=== PATIENT | male | born 1955 | race Asian ===

== ENCOUNTER 2017-07-31 17:09 | Inpatient (IN) | payer BC, MEDICARE ==
[~2017-07-31] VITALS: Ht 170.2 cm; Wt 84.5 kg
[2017-07-31 17:22] LABS: GLUCOSE,POINT OF CARE 150 MG/DL (70-110)
[2017-07-31 19:26] LABS: BASOPHILS % (AUTO) 0.7 % (0.0-2.0); EOSINOPHILS % (AUTO) 1.7 % (1.0-6.0); HEMATOCRIT 21.4 % (41-53); HEMOGLOBIN 7.4 g/dL (13.5-17.5); LYMPHOCYTES # (AUTO) 0.8 K/uL (1.0-4.8); MEAN CORPUSCULAR HEMOGLOBIN 30.5 pg (26.0-34.0); MEAN CORPUSCULAR HGB CONC 34.6 G/dL (31.0-37.0); MEAN CORPUSCULAR VOLUME 88 fL (80-100); MONOCYTES # (AUTO) 0.5 K/uL (0.1-1.0); MONOCYTES % (AUTO) 7.9 % (2.0-9.0); NEUTROPHILS # (AUTO) 5.2 K/uL (1.8-7.7); NEUTROPHILS % (AUTO) 77.7 % (40.0-70.0); PLATELET COUNT (AUTO) 205 K/uL (150-450); RED BLOOD CELL COUNT(AUTO) 2.43 MIL/uL (4.50-5.90); RED CELL DISTRIBUTION WIDTH 14.8 % (11.5-14.5)
[2017-07-31 19:36] LABS: CALCIUM, TOTAL 8.3 mg/dL (8.8-10.5); CREATININE 9.63 mg/dL (0.60-1.30); POTASSIUM 5.4 mmol/L (3.5-5.1)
[2017-07-31 20:01] LABS: ALBUMIN 2.6 g/dL (3.4-5.0); BILIRUBIN,TOTAL 0.3 mg/dL (0.1-1.0); CKMB RELATIVE INDEX 1.8 % (0.0-4.0); CREATINE KINASE MB 9.4 ng/mL (0-5)
[2017-07-31 20:28] LABS: PLATELET MORPHOLOGY COMMENT LARGE PLTS PRESENT
[2017-07-31] MEDS ORDERED: SODIUM POLYSTYRENE SULFONATE 15 GM/60 ML SUSPENSION BOTTLE PO ONE (20:30)
[2017-07-31] MEDS ORDERED: BUMETANIDE 0.25 MG/ML 4 ML VIAL IVP ONE ×2 (20:30→20:45)
[2017-07-31 21:17] LABS: GLUCOSE,POINT OF CARE 151 MG/DL (70-110)
[2017-07-31] MEDS ORDERED: HydrALAZINE HCL 20 MG/ML VIAL IVP ONE (21:45)
[2017-07-31] MEDS ORDERED: FUROSEMIDE 40 MG/4 ML VIAL IVP ONE (21:45)
[2017-07-31] MEDS ORDERED: LABETALOL HCL 5 MG/ML 20 ML VIAL IVP STA (21:48)
[2017-07-31] MEDS ORDERED: NITROGLYCERIN 2% (1 GM=INCH) PACKET TP ONE (22:00)
[2017-07-31 22:27] LABS: APPEARANCE,URINE CLEAR (CLEAR); BILIRUBIN,URINE NEGATIVE (NEGATIVE); GLUCOSE, URINE (UA) 250 mg/dL (NEGATIVE); KETONES,URINE NEGATIVE (NEGATIVE); LEUKOCYTE ESTERASE ,URINE NEGATIVE (NEGATIVE); NITRATE,URINE NEGATIVE (NEGATIVE); OCCULT BLOOD,URINE SMALL (NEGATIVE); PH,URINE 7.5 (5.0-8.0); PROTEIN,URINE SEE CONFIRM (NEGATIVE); UROBILINOGEN,URINE 0.2 mg/dL (<=1.0)
[2017-07-31] MEDS ORDERED: ACETAMINOPHEN 325 MG TABLET PO PRN (22:45)
[2017-07-31] MEDS ORDERED: BISACODYL 10 MG RECTAL RECTAL SUPPOSITORY PR PRN (22:45)
[2017-07-31] MEDS ORDERED: ZOLPIDEM TARTRATE 5 MG TABLET PO PRN (22:45)
[2017-07-31] MEDS ORDERED: MORPHINE SULFATE 4 MG/ML SYRINGE IVP PRN (22:45)
[2017-07-31] MEDS ORDERED: IPRATROPIUM BROMIDE 0.5 MG/2.5 ML NEB SOLUTION NEB PRN (22:45)
[2017-07-31] MEDS ORDERED: MAGNESIUM HYDROXIDE SUSPENSION 30 ML UDCUP PO PRN (22:45)
[2017-07-31] MEDS ORDERED: OxyCODONE HCL/ACETAMINOPHEN 5-325 MG TABLET PO PRN (22:45)
[2017-07-31] MEDS ORDERED: ONDANSETRON HCL 4 MG/2 ML VIAL IVP PRN (22:45)
[2017-07-31] MEDS ORDERED: ALBUTEROL SULFATE 2.5 MG/0.5 ML NEB SOLUTION NEB PRN (22:45)
[2017-07-31 22:46] LABS: BACTERIA,URINE None Seen /HPF (None Seen); SQUAMOUS EPITHELIAL CELL,UR Rare /LPF (None Seen); SULFOSALICYLIC ACID,URINE 4+ (Negative); WBC,URINE 0-2 /HPF (0-5)
[2017-07-31 23:09] VITALS: BP 185/97
[2017-07-31 23:59] VITALS: BP 185/93
[2017-08-01] VITALS (7 sets, daily range): BP systolic 143–194; BP diastolic 73–97
[2017-08-01 05:45] LABS: PROTHROMBIN TIME 10.9 SEC (9.4-11.6)
[2017-08-01 06:00] LABS: % IRON SATURATION 18.9 % (30-44)
[2017-08-01 06:04] LABS: ALBUMIN 2.3 g/dL (3.4-5.0); BILIRUBIN,TOTAL 0.2 mg/dL (0.1-1.0); CALCIUM, TOTAL 7.9 mg/dL (8.8-10.5); CHOL/HDL RATIO 3.7 (4.2-7.3); CREATININE 9.61 mg/dL (0.60-1.30); MAGNESIUM 2.2 mg/dL (1.80-2.40); PHOSPHORUS 6.5 mg/dL (2.5-4.9); POTASSIUM 5.1 mmol/L (3.5-5.1); THYROID STIMULATING HORMONE 1.04 uIU/mL (0.36-3.74); TOTAL PROTEIN, SERUM 5.6 g/dL (6.4-8.2)
[2017-08-01 06:06] LABS: HEMOGLOBIN A1C 7.2 % (4.5-6.2)
[2017-08-01] MEDS: NITROGLYCERIN 2% (1 GM=INCH) PACKET TP SCH ×5 (06:15→23:41)
[2017-08-01 07:12] LABS: BASOPHILS % (AUTO) 0.8 % (0.0-2.0); EOSINOPHILS % (AUTO) 1.5 % (1.0-6.0); LYMPHOCYTES # (AUTO) 0.9 K/uL (1.0-4.8); LYMPHOCYTES % (AUTO) 15.6 % (22.0-44.0); MEAN CORPUSCULAR HEMOGLOBIN 30.4 pg (26.0-34.0); MEAN CORPUSCULAR HGB CONC 34.4 G/dL (31.0-37.0); MEAN CORPUSCULAR VOLUME 88 fL (80-100); MONOCYTES # (AUTO) 0.4 K/uL (0.1-1.0); MONOCYTES % (AUTO) 7.9 % (2.0-9.0); NEUTROPHILS # (AUTO) 4.2 K/uL (1.8-7.7); NEUTROPHILS % (AUTO) 74.2 % (40.0-70.0); PLATELET COUNT (AUTO) 204 K/uL (150-450); RED BLOOD CELL COUNT(AUTO) 2.23 MIL/uL (4.50-5.90); RED CELL DISTRIBUTION WIDTH 14.8 % (11.5-14.5)
[2017-08-01 07:15] LABS: HEMATOCRIT 19.7 % (41-53); HEMOGLOBIN 6.8 g/dL (13.5-17.5)
[2017-08-01 09:09] LABS: BASOPHILS % (AUTO) 1.2 % (0.0-2.0); EOSINOPHILS % (AUTO) 1.7 % (1.0-6.0); HEMATOCRIT 21.6 % (41-53); HEMOGLOBIN 7.3 g/dL (13.5-17.5); LYMPHOCYTES # (AUTO) 0.9 K/uL (1.0-4.8); LYMPHOCYTES % (AUTO) 14.3 % (22.0-44.0); MEAN CORPUSCULAR HEMOGLOBIN 29.9 pg (26.0-34.0); MEAN CORPUSCULAR HGB CONC 33.6 G/dL (31.0-37.0); MEAN CORPUSCULAR VOLUME 89 fL (80-100); MONOCYTES # (AUTO) 0.5 K/uL (0.1-1.0); MONOCYTES % (AUTO) 8.3 % (2.0-9.0); NEUTROPHILS # (AUTO) 4.5 K/uL (1.8-7.7); NEUTROPHILS % (AUTO) 74.5 % (40.0-70.0); PLATELET COUNT (AUTO) 212 K/uL (150-450); RED BLOOD CELL COUNT(AUTO) 2.43 MIL/uL (4.50-5.90); RED CELL DISTRIBUTION WIDTH 14.9 % (11.5-14.5)
[2017-08-01 09:29] LABS: PLATELET MORPHOLOGY COMMENT LARGE PLTS PRESENT
[2017-08-01] MEDS: EPOETIN ALFA 10,000 UNITS/ML VIAL SQ SCH (09:39)
[2017-08-01] MEDS: HEPARIN SODIUM,PORCINE 5,000 UNITS/ML VIAL SQ SCH ×2 (09:40→20:23)
[2017-08-01] MEDS: PANTOPRAZOLE SODIUM 40 MG DR TABLET PO SCH (09:40)
[2017-08-01] MEDS: BUMETANIDE 0.25 MG/ML 10 ML VIAL IVP SCH ×2 (09:40→20:23)
[2017-08-01 10:48] LABS: GLUCOMETER DEV NAME(LOC) 5N 2S; GLUCOSE,POINT OF CARE 134 MG/DL (70-110)
[2017-08-01] MEDS: FERROUS SULFATE 325 MG EC TABLET PO SCH ×2 (11:48→18:10)
[2017-08-01] MEDS: VITAMIN B COMP/VIT C/FOLIC ACID CAPSULE PO SCH (11:51)
[2017-08-01 13:37] LABS: GLUCOMETER DEV NAME(LOC) 5S 1M; GLUCOSE,POINT OF CARE 212 MG/DL (70-110)
[2017-08-01] MEDS ORDERED: DEXTROSE 50%-WATER 25 GM/50 ML SYRINGE IVP PRN (18:00)
[2017-08-01] MEDS: INSULIN ASPART 100 UNITS/ML SQ PRN (20:22)
[2017-08-01] MEDS: CloNIDine HCL 0.1 MG TABLET PO PRN (23:51)
[2017-08-02] VITALS (18 sets, daily range): BP systolic 127–191; BP diastolic 72–100
[2017-08-02 00:08] LABS: GLUCOMETER DEV NAME(LOC) 5S 1M; GLUCOSE,POINT OF CARE 196 MG/DL (70-110)
[2017-08-02 00:08] LABS: GLUCOMETER DEV NAME(LOC) 5S 1M; GLUCOSE,POINT OF CARE 140 MG/DL (70-110)
[2017-08-02] MEDS: NITROGLYCERIN 2% (1 GM=INCH) PACKET TP SCH ×3 (06:10→17:39)
[2017-08-02] MEDS: INSULIN ASPART 100 UNITS/ML SQ PRN ×3 (06:12→21:04)
[2017-08-02 06:22] LABS: CALCIUM, TOTAL 7.7 mg/dL (8.8-10.5); CREATININE 9.96 mg/dL (0.60-1.30); MONOCYTES # (AUTO) 0.5 K/uL (0.1-1.0); PHOSPHORUS 6.3 mg/dL (2.5-4.9); POTASSIUM 4.9 mmol/L (3.5-5.1)
[2017-08-02 07:10] LABS: EOSINOPHILS % (AUTO) 2.4 % (1.0-6.0); LYMPHOCYTES % (AUTO) 17.2 % (22.0-44.0); MEAN CORPUSCULAR HEMOGLOBIN 30.8 pg (26.0-34.0); MEAN CORPUSCULAR HGB CONC 34.9 G/dL (31.0-37.0); MEAN CORPUSCULAR VOLUME 88 fL (80-100); MONOCYTES % (AUTO) 8.4 % (2.0-9.0); NEUTROPHILS # (AUTO) 4.3 K/uL (1.8-7.7); PLATELET COUNT (AUTO) 171 K/uL (150-450); RED BLOOD CELL COUNT(AUTO) 2.17 MIL/uL (4.50-5.90); RED CELL DISTRIBUTION WIDTH 14.8 % (11.5-14.5)
[2017-08-02 07:17] LABS: HEMOGLOBIN 6.7 g/dL (13.5-17.5)
[2017-08-02 07:18] LABS: HEMATOCRIT 19.2 % (41-53)
[2017-08-02 07:42] LABS: GLUCOMETER DEV NAME(LOC) 5S 1M; GLUCOSE,POINT OF CARE 135 MG/DL (70-110)
[2017-08-02] MEDS: VITAMIN B COMP/VIT C/FOLIC ACID CAPSULE PO SCH (08:58)
[2017-08-02] MEDS: PANTOPRAZOLE SODIUM 40 MG DR TABLET PO SCH (08:58)
[2017-08-02] MEDS: AmLODIPine BESYLATE 5 MG TABLET PO SCH (08:58)
[2017-08-02] MEDS: FERROUS SULFATE 325 MG EC TABLET PO SCH (08:58)
[2017-08-02] MEDS ORDERED: SODIUM CHLORIDE 0.9% 100 ML ONE (09:33)
[2017-08-02] MEDS: SOD FERRIC GLUC COMPLX/SUCROSE 125 MG in SODIUM CHLORIDE 0.9% 100 ML IV SCH (09:37)
[2017-08-02] MEDS: HEPARIN SODIUM,PORCINE 5,000 UNITS/ML VIAL SQ SCH ×2 (09:37→20:49)
[2017-08-02] MEDS: BUMETANIDE 0.25 MG/ML 10 ML VIAL IVP SCH ×2 (09:39→20:48)
[2017-08-02] MEDS: CloNIDine HCL 0.1 MG TABLET PO PRN (11:26)
[2017-08-02] MEDS ORDERED: SODIUM CHLORIDE 0.9% 250 ML IV ONE (13:11)
[2017-08-02] MEDS: LABETALOL HCL 5 MG/ML 20 ML VIAL IVP PRN (17:31)
[2017-08-02] MEDS: CloNIDine HCL 0.1 MG TABLET PO SCH (20:49)
[2017-08-02] MEDS: LABETALOL HCL 100 MG TABLET PO SCH (20:49)
[2017-08-02 23:22] LABS: GLUCOMETER DEV NAME(LOC) 5N 2S; GLUCOSE,POINT OF CARE 254 MG/DL (70-110)
[2017-08-03 00:09] VITALS: BP 145/85
[2017-08-03] MEDS: NITROGLYCERIN 2% (1 GM=INCH) PACKET TP SCH ×3 (00:14→11:57)
[2017-08-03 04:43] VITALS: BP 154/68
[2017-08-03] MEDS: INSULIN ASPART 100 UNITS/ML SQ PRN ×2 (05:58→11:59)
[2017-08-03 06:41] LABS: BASOPHILS % (AUTO) 1.1 % (0.0-2.0); EOSINOPHILS % (AUTO) 3.2 % (1.0-6.0); HEMATOCRIT 22.6 % (41-53); HEMOGLOBIN 8.2 g/dL (13.5-17.5); LYMPHOCYTES # (AUTO) 1.2 K/uL (1.0-4.8); LYMPHOCYTES % (AUTO) 20.4 % (22.0-44.0); MEAN CORPUSCULAR HEMOGLOBIN 31.4 pg (26.0-34.0); MEAN CORPUSCULAR HGB CONC 36.5 G/dL (31.0-37.0); MEAN CORPUSCULAR VOLUME 86 fL (80-100); MONOCYTES # (AUTO) 0.6 K/uL (0.1-1.0); MONOCYTES % (AUTO) 10.1 % (2.0-9.0); NEUTROPHILS # (AUTO) 3.7 K/uL (1.8-7.7); NEUTROPHILS % (AUTO) 65.2 % (40.0-70.0); PLATELET COUNT (AUTO) 176 K/uL (150-450); RED BLOOD CELL COUNT(AUTO) 2.63 MIL/uL (4.50-5.90); RED CELL DISTRIBUTION WIDTH 15.1 % (11.5-14.5)
[2017-08-03 07:09] LABS: CALCIUM, TOTAL 7.9 mg/dL (8.8-10.5); CREATININE 10.14 mg/dL (0.60-1.30); MAGNESIUM 1.9 mg/dL (1.80-2.40); PHOSPHORUS 6.4 mg/dL (2.5-4.9); POTASSIUM 4.6 mmol/L (3.5-5.1)
[2017-08-03 07:52] VITALS: BP 178/94
[2017-08-03] MEDS: SOD FERRIC GLUC COMPLX/SUCROSE 125 MG in SODIUM CHLORIDE 0.9% 100 ML IV SCH (08:30)
[2017-08-03] MEDS: CloNIDine HCL 0.1 MG TABLET PO SCH (08:30)
[2017-08-03] MEDS: BUMETANIDE 0.25 MG/ML 10 ML VIAL IVP SCH (08:30)
[2017-08-03] MEDS: LABETALOL HCL 100 MG TABLET PO SCH (08:31)
[2017-08-03] MEDS: VITAMIN B COMP/VIT C/FOLIC ACID CAPSULE PO SCH (08:31)
[2017-08-03] MEDS: PANTOPRAZOLE SODIUM 40 MG DR TABLET PO SCH (08:31)
[2017-08-03] MEDS: EPOETIN ALFA 10,000 UNITS/ML VIAL SQ SCH (08:31)
[2017-08-03] MEDS: AmLODIPine BESYLATE 5 MG TABLET PO SCH (08:31)
[2017-08-03] MEDS: HEPARIN SODIUM,PORCINE 5,000 UNITS/ML VIAL SQ SCH (08:32)
[2017-08-03] MEDS ORDERED: FURO40 PO (11:08)
[2017-08-03] MEDS ORDERED: CLON-570 PO (11:08)
[2017-08-03] MEDS ORDERED: LABE200T PO (11:09)
[2017-08-03] MEDS ORDERED: AMLO-512 PO (11:09)
[2017-08-03 11:48] VITALS: BP 169/81
[2017-08-03] MEDS: LABETALOL HCL 5 MG/ML 20 ML VIAL IVP PRN (11:58)
[2017-08-03] MEDS ORDERED: CALCIUM ACETATE 667 MG CAPSULE PO SCH (12:00)
[2017-08-03 13:38] VITALS: BP 133/71
[2017-08-03 17:07] LABS: GLUCOMETER DEV NAME(LOC) 5N 2S; GLUCOSE,POINT OF CARE 209 MG/DL (70-110)
[2017-08-03 17:07] LABS: GLUCOMETER DEV NAME(LOC) 5N 2S; GLUCOSE,POINT OF CARE 197 MG/DL (70-110)
[2017-08-03 17:18] LABS: GLUCOMETER DEV NAME(LOC) 5S 1M; GLUCOSE,POINT OF CARE 120 MG/DL (70-110)
[2017-08-03 17:18] LABS: GLUCOMETER DEV NAME(LOC) 5S 1M; GLUCOSE,POINT OF CARE 162 MG/DL (70-110)
[2017-08-03] MEDS ORDERED: LABETALOL HCL 100 MG TABLET PO SCH (21:00)
== END 2017-08-03 13:55 | disposition home or self-care (01) | DRG 291 ==
LOC: EMS 17:11 → 5N 20:30
PROVIDERS: ADMIT Internal Medicine; ATTEND Internal Medicine
PROC: 30233N1 Transfusion of Nonautologous Red Blood Cells into Peripheral Vein, Percutaneous Approach (ICD-10-PCS; principal; 2017-08-02)
DX: I13.2 Hypertensive heart and chronic kidney disease with heart failure and with stage 5 chronic kidney disease, or end stage renal disease (principal); N18.6 End stage renal disease; N17.9 Acute kidney failure, unspecified; E46 Unspecified protein-calorie malnutrition; E11.22 Type 2 diabetes mellitus with diabetic chronic kidney disease; E11.319 Type 2 diabetes mellitus with unspecified diabetic retinopathy without macular edema; E83.51 Hypocalcemia; E87.5 Hyperkalemia; D63.1 Anemia in chronic kidney disease; I50.9 Heart failure, unspecified; E55.9 Vitamin D deficiency, unspecified; E78.5 Hyperlipidemia, unspecified; Z91.15 Patient's noncompliance with renal dialysis; Z91.19 Patient's noncompliance with other medical treatment and regimen; Z68.29 Body mass index [BMI] 29.0-29.9, adult
CPT/HCPCS: 82271; 82306; 82962; 83036; 83540; 83550; 83735; 84100; 84443; 86850; 86900; 86901; 86920; 93005; 96374; 96375; 99291; J0885; J1644; J1940; J2405; J2916; J3490; J7050; P9016

== ENCOUNTER 2017-11-07 14:58 | Inpatient (IN) | payer MEDICARE ==
[~2017-11-07] VITALS: Ht 170.2 cm; Wt 87.2 kg
[~2017-11-07 14:58] MED LIST: AMLO-512 PO; CLON-570 PO; FURO40 PO; LABE200T PO
[2017-11-07] MEDS ORDERED: METF500T6 PO (15:09)
[2017-11-07 15:13] LABS: GLUCOSE,POINT OF CARE 55 MG/DL (70-110)
[2017-11-07 15:33] LABS: GLUCOSE,POINT OF CARE 83 MG/DL (70-110)
[2017-11-07 15:42] LABS: BASOPHILS % (AUTO) 0.9 % (0.0-2.0); EOSINOPHILS % (AUTO) 1.6 % (1.0-6.0); LYMPHOCYTES # (AUTO) 0.6 K/uL (1.0-4.8); LYMPHOCYTES % (AUTO) 12.7 % (22.0-44.0); MEAN CORPUSCULAR HEMOGLOBIN 28.4 pg (26.0-34.0); MEAN CORPUSCULAR HGB CONC 33.3 G/dL (31.0-37.0); MEAN CORPUSCULAR VOLUME 85 fL (80-100); MONOCYTES # (AUTO) 0.4 K/uL (0.1-1.0); MONOCYTES % (AUTO) 8.8 % (2.0-9.0); NEUTROPHILS # (AUTO) 3.6 K/uL (1.8-7.7); PLATELET COUNT (AUTO) 187 K/uL (150-450); RED BLOOD CELL COUNT(AUTO) 2.12 MIL/uL (4.50-5.90); RED CELL DISTRIBUTION WIDTH 17.5 % (11.5-14.5)
[2017-11-07 16:01] LABS: ALBUMIN 2.5 g/dL (3.4-5.0); BILIRUBIN,TOTAL 0.4 mg/dL (0.1-1.0); CALCIUM, TOTAL 6.5 mg/dL (8.8-10.5); CREATININE 15.62 mg/dL (0.60-1.30); TOTAL PROTEIN, SERUM 6.1 g/dL (6.4-8.2)
[2017-11-07 16:13] LABS: POTASSIUM 6.6 mmol/L (3.5-5.1)
[2017-11-07] MEDS ORDERED: DiphenhydrAMINE HCL 25 MG CAPSULE PO ONE (17:15)
[2017-11-07] MEDS ORDERED: ACETAMINOPHEN 500 MG TABLET PO ONE (17:15)
[2017-11-07] MEDS ORDERED: SODIUM POLYSTYRENE SULFONATE 15 GM/60 ML SUSPENSION BOTTLE PO ONE ×2 (17:15→22:45)
[2017-11-07] MEDS ORDERED: CALCIUM GLUCONATE 100 MG/ML 10 ML IVP ONE ×2 (17:15→22:45)
[2017-11-07 17:17] LABS: APPEARANCE,URINE CLOUDY (CLEAR); BILIRUBIN,URINE NEGATIVE (NEGATIVE); GLUCOSE, URINE (UA) NEGATIVE (NEGATIVE); KETONES,URINE NEGATIVE (NEGATIVE); LEUKOCYTE ESTERASE ,URINE NEGATIVE (NEGATIVE); NITRATE,URINE NEGATIVE (NEGATIVE); OCCULT BLOOD,URINE MODERATE (NEGATIVE); PH,URINE 5.5 (5.0-8.0); PROTEIN,URINE SEE CONFIRM (NEGATIVE); UROBILINOGEN,URINE 0.2 mg/dL (<=1.0)
[2017-11-07] MEDS ORDERED: 0.9% SODIUM CHLORIDE 10 ML SYRINGE IVP PRN ×3 (17:30→23:15)
[2017-11-07] MEDS ORDERED: DEXTROSE 50%-WATER 25 GM/50 ML SYRINGE IVP ONE ×3 (17:30→22:45)
[2017-11-07] MEDS ORDERED: FUROSEMIDE 40 MG/4 ML VIAL IVP ONE (17:30)
[2017-11-07] MEDS ORDERED: SODIUM BICARBONATE [ADULT] 8.4% 50 MEQ/50 ML SYRINGE IVP ONE ×2 (17:30→22:45)
[2017-11-07] MEDS ORDERED: INSULIN REGULAR, HUMAN 100 UNITS/ML IVP ONE ×2 (17:30→22:45)
[2017-11-07] MEDS ORDERED: ONDANSETRON HCL 4 MG/2 ML VIAL IVP PRN ×3 (17:30→23:15)
[2017-11-07 17:43] LABS: SULFOSALICYLIC ACID,URINE 4+ (Negative)
[2017-11-07 17:45] LABS: AMORPHOUS SEDIMENT,UR Moderate /LPF (None Seen); BACTERIA,URINE Rare /HPF (None Seen); SQUAMOUS EPITHELIAL CELL,UR Few /LPF (None Seen)
[2017-11-07] MEDS ORDERED: ACETAMINOPHEN 325 MG TABLET PO PRN (17:45)
[2017-11-07 17:48] LABS: INR 1.1 (0.9-1.1); PROTHROMBIN TIME 11.4 SEC (9.4-11.6)
[2017-11-07 18:28] LABS: GLUCOSE,POINT OF CARE 101 MG/DL (70-110)
[2017-11-07] MEDS: PANTOPRAZOLE SODIUM 40 MG/VIAL IVP SCH ×2 (19:14→19:16)
[2017-11-07] MEDS ORDERED: OXYGEN THERAPY IH SCH (20:00)
[2017-11-07 20:38] LABS: GLUCOSE,POINT OF CARE 31 MG/DL (70-110)
[2017-11-07 20:59] LABS: BASOPHILS % (AUTO) 0.7 % (0.0-2.0); EOSINOPHILS % (AUTO) 1.1 % (1.0-6.0); LYMPHOCYTES # (AUTO) 0.6 K/uL (1.0-4.8); LYMPHOCYTES % (AUTO) 12.1 % (22.0-44.0); MEAN CORPUSCULAR HEMOGLOBIN 28.7 pg (26.0-34.0); MEAN CORPUSCULAR HGB CONC 33.5 G/dL (31.0-37.0); MEAN CORPUSCULAR VOLUME 86 fL (80-100); MONOCYTES # (AUTO) 0.4 K/uL (0.1-1.0); MONOCYTES % (AUTO) 9.1 % (2.0-9.0); NEUTROPHILS # (AUTO) 3.6 K/uL (1.8-7.7); PLATELET COUNT (AUTO) 177 K/uL (150-450); RED BLOOD CELL COUNT(AUTO) 2.06 MIL/uL (4.50-5.90); RED CELL DISTRIBUTION WIDTH 17.3 % (11.5-14.5)
[2017-11-07 21:03] LABS: GLUCOSE,POINT OF CARE 126 MG/DL (70-110)
[2017-11-07 21:17] VITALS: BP 121/66
[2017-11-07 21:23] LABS: ALBUMIN 2.5 g/dL (3.4-5.0); BILIRUBIN,TOTAL 0.4 mg/dL (0.1-1.0); CALCIUM, TOTAL 6.5 mg/dL (8.8-10.5); CREATININE 15.89 mg/dL (0.60-1.30)
[2017-11-07 22:03] LABS: HEMATOCRIT 17.7 % (41-53); HEMOGLOBIN 5.9 g/dL (13.5-17.5)
[2017-11-07 22:04] LABS: POTASSIUM 6.5 mmol/L (3.5-5.1)
[2017-11-07] MEDS: FUROSEMIDE 40 MG/4 ML VIAL IVP SCH (22:23)
[2017-11-07] MEDS: DOCUSATE SODIUM 100 MG CAPSULE PO SCH (23:15)
[2017-11-07] MEDS ORDERED: FUROSEMIDE 40 MG TABLET PO SCH (23:15)
[2017-11-07] MEDS ORDERED: OxyCODONE HCL/ACETAMINOPHEN 5-325 MG TABLET PO PRN (23:15)
[2017-11-07] MEDS ORDERED: ZOLPIDEM TARTRATE 5 MG TABLET PO PRN (23:15)
[2017-11-07] MEDS: LABETALOL HCL 200 MG TABLET PO SCH (23:30)
[2017-11-08] VITALS (14 sets, daily range): BP systolic 119–159; BP diastolic 61–89
[2017-11-08] MEDS: CloNIDine HCL 0.1 MG TABLET PO SCH ×3 (00:18→21:15)
[2017-11-08 04:27] LABS: BASOPHILS % (AUTO) 0.6 % (0.0-2.0); EOSINOPHILS % (AUTO) 0.8 % (1.0-6.0); LYMPHOCYTES # (AUTO) 0.5 K/uL (1.0-4.8); LYMPHOCYTES % (AUTO) 11.3 % (22.0-44.0); MEAN CORPUSCULAR HEMOGLOBIN 28.5 pg (26.0-34.0); MEAN CORPUSCULAR HGB CONC 33.5 G/dL (31.0-37.0); MEAN CORPUSCULAR VOLUME 85 fL (80-100); MONOCYTES # (AUTO) 0.4 K/uL (0.1-1.0); MONOCYTES % (AUTO) 8.8 % (2.0-9.0); NEUTROPHILS # (AUTO) 3.8 K/uL (1.8-7.7); NEUTROPHILS % (AUTO) 78.5 % (40.0-70.0); PLATELET COUNT (AUTO) 200 K/uL (150-450); RED BLOOD CELL COUNT(AUTO) 2.07 MIL/uL (4.50-5.90); RED CELL DISTRIBUTION WIDTH 17.9 % (11.5-14.5)
[2017-11-08 04:33] LABS: CALCIUM, TOTAL 6.9 mg/dL (8.8-10.5); CREATININE 15.76 mg/dL (0.60-1.30); MAGNESIUM 2.7 mg/dL (1.80-2.40)
[2017-11-08 04:38] LABS: POTASSIUM 6.3 mmol/L (3.5-5.1)
[2017-11-08 04:39] LABS: HEMOGLOBIN 5.9 g/dL (13.5-17.5)
[2017-11-08 04:40] LABS: HEMATOCRIT 17.6 % (41-53)
[2017-11-08 04:42] LABS: % IRON SATURATION 47.6 % (30-44)
[2017-11-08] MEDS ORDERED: DEXTROSE 50%-WATER 25 GM/50 ML SYRINGE IVP ONE ×2 (04:45→05:15)
[2017-11-08 04:51] LABS: PHOSPHORUS 11.4 mg/dL (2.5-4.9)
[2017-11-08] MEDS ORDERED: SODIUM POLYSTYRENE SULFONATE 15 GM/60 ML SUSPENSION BOTTLE PO ONE ×3 (05:15→13:45)
[2017-11-08] MEDS ORDERED: SODIUM BICARBONATE [ADULT] 8.4% 50 MEQ/50 ML SYRINGE IVP ONE (05:15)
[2017-11-08] MEDS ORDERED: CALCIUM GLUCONATE 100 MG/ML 10 ML IVP ONE (05:15)
[2017-11-08] MEDS ORDERED: INSULIN REGULAR, HUMAN 100 UNITS/ML IVP ONE (05:15)
[2017-11-08 07:28] LABS: GLUCOMETER DEV NAME(LOC) 5N 1P; GLUCOSE,POINT OF CARE 117 MG/DL (70-110)
[2017-11-08] MEDS ORDERED: MetFORMIN HCL 500 MG TABLET PO SCH (08:00)
[2017-11-08] MEDS ORDERED: PANTOPRAZOLE SODIUM 40 MG/VIAL IVP SCH (09:00)
[2017-11-08 09:28] LABS: CREATININE 16.06 mg/dL (0.60-1.30); POTASSIUM 5.7 mmol/L (3.5-5.1)
[2017-11-08] MEDS: PANTOPRAZOLE SODIUM 40 MG/VIAL IVP SCH (09:32)
[2017-11-08] MEDS: AmLODIPine BESYLATE 10 MG TABLET PO SCH (09:32)
[2017-11-08] MEDS: DOCUSATE SODIUM 100 MG CAPSULE PO SCH ×2 (09:32→21:00)
[2017-11-08] MEDS: FUROSEMIDE 40 MG/4 ML VIAL IVP SCH ×2 (09:32→21:15)
[2017-11-08] MEDS: EPOETIN ALFA 10,000 UNITS/ML VIAL SQ SCH (09:36)
[2017-11-08] MEDS: LABETALOL HCL 200 MG TABLET PO SCH ×2 (12:47→21:15)
[2017-11-08] MEDS: CHOLECALCIFEROL (VIT D3) 1,000 UNITS TABLET PO SCH (14:03)
[2017-11-08] MEDS ORDERED: SODIUM CHLORIDE 0.9% 250 ML IV ONE (16:38)
[2017-11-08 18:42] LABS: CALCIUM, TOTAL 6.7 mg/dL (8.8-10.5); CREATININE 16.04 mg/dL (0.60-1.30); POTASSIUM 5.5 mmol/L (3.5-5.1)
[2017-11-08] MEDS ORDERED: DEXTROSE 50%-WATER 25 GM/50 ML SYRINGE IVP PRN (21:00)
[2017-11-08] MEDS: INSULIN LISPRO 100 UNITS/ML SQ PRN (22:22)
[2017-11-09 05:14] VITALS: BP 110/57
[2017-11-09 07:13] VITALS: BP 131/60
[2017-11-09 08:20] LABS: BASOPHILS % (AUTO) 0.8 % (0.0-2.0); EOSINOPHILS % (AUTO) 0.4 % (1.0-6.0); LYMPHOCYTES # (AUTO) 0.6 K/uL (1.0-4.8); LYMPHOCYTES % (AUTO) 10.8 % (22.0-44.0); MEAN CORPUSCULAR HEMOGLOBIN 29.2 pg (26.0-34.0); MEAN CORPUSCULAR HGB CONC 34.1 G/dL (31.0-37.0); MEAN CORPUSCULAR VOLUME 86 fL (80-100); MONOCYTES # (AUTO) 0.4 K/uL (0.1-1.0); MONOCYTES % (AUTO) 7.3 % (2.0-9.0); NEUTROPHILS # (AUTO) 4.7 K/uL (1.8-7.7); NEUTROPHILS % (AUTO) 80.7 % (40.0-70.0); PLATELET COUNT (AUTO) 203 K/uL (150-450); RED CELL DISTRIBUTION WIDTH 17.3 % (11.5-14.5)
[2017-11-09] MEDS: PANTOPRAZOLE SODIUM 40 MG/VIAL IVP SCH (08:20)
[2017-11-09] MEDS: FUROSEMIDE 40 MG/4 ML VIAL IVP SCH ×2 (08:20→22:46)
[2017-11-09] MEDS: CloNIDine HCL 0.1 MG TABLET PO SCH ×2 (08:21→22:46)
[2017-11-09] MEDS: CHOLECALCIFEROL (VIT D3) 1,000 UNITS TABLET PO SCH (08:21)
[2017-11-09 08:22] LABS: HEMOGLOBIN A1C 6.6 % (4.5-6.2)
[2017-11-09] MEDS: DOCUSATE SODIUM 100 MG CAPSULE PO SCH ×2 (08:22→22:46)
[2017-11-09 08:30] LABS: CALCIUM, TOTAL 6.7 mg/dL (8.8-10.5); CREATININE 16.07 mg/dL (0.60-1.30); MAGNESIUM 2.6 mg/dL (1.80-2.40); POTASSIUM 5.5 mmol/L (3.5-5.1)
[2017-11-09 08:53] LABS: PHOSPHORUS 10.5 mg/dL (2.5-4.9)
[2017-11-09] MEDS: AmLODIPine BESYLATE 10 MG TABLET PO SCH (09:08)
[2017-11-09] MEDS ORDERED: HEPARIN SODIUM 1000 UNITS/NS 500 ML ONE (09:35)
[2017-11-09] MEDS ORDERED: HEPARIN SODIUM,PORCINE 1,000 UNITS/ML 10 ML VIAL ONE (09:36)
[2017-11-09] MEDS ORDERED: LIDOCAINE HCL/PF 1% 30 ML VIAL ONE (09:36)
[2017-11-09] MEDS: LABETALOL HCL 200 MG TABLET PO SCH ×2 (09:42→22:46)
[2017-11-09 10:19] LABS: GLUCOMETER DEV NAME(LOC) 5N 1P; GLUCOSE,POINT OF CARE 204 MG/DL (70-110)
[2017-11-09 10:19] LABS: GLUCOMETER DEV NAME(LOC) 5N 1P; GLUCOSE,POINT OF CARE 94 MG/DL (70-110)
[2017-11-09 10:19] LABS: GLUCOMETER DEV NAME(LOC) 5N 1P; GLUCOSE,POINT OF CARE 230 MG/DL (70-110)
[2017-11-09] MEDS ORDERED: MIDAZOLAM HCL 2 MG/2 ML VIAL ONE (11:24)
[2017-11-09] MEDS ORDERED: FentaNYL CITRATE-PF 100 MCG/2 ML VIAL ONE (11:24)
[2017-11-09] MEDS ORDERED: FentaNYL CITRATE-PF 100 MCG/2 ML VIAL IVP ONE (11:35)
[2017-11-09] MEDS ORDERED: MIDAZOLAM HCL 2 MG/2 ML VIAL IVP ONE (11:35)
[2017-11-09 11:59] LABS: GLUCOMETER DEV NAME(LOC) 5N 2S; GLUCOSE,POINT OF CARE 156 MG/DL (70-110)
[2017-11-09] MEDS ORDERED: HEPARIN SODIUM,PORCINE 1,000 UNITS/ML VIAL IVP ONE ×3 (12:00→20:00)
[2017-11-09] MEDS: INSULIN LISPRO 100 UNITS/ML SQ PRN ×3 (12:54→22:47)
[2017-11-09 15:15] VITALS: BP 128/62
[2017-11-09] MEDS ORDERED: SODIUM CHLORIDE 0.9% 500 ML IV ONE (20:10)
[2017-11-09 22:58] VITALS: BP 159/64
[2017-11-10] VITALS (7 sets, daily range): BP systolic 122–178; BP diastolic 55–82
[2017-11-10 02:44] LABS: GLUCOMETER DEV NAME(LOC) 5N 1P; GLUCOSE,POINT OF CARE 175 MG/DL (70-110)
[2017-11-10 06:33] LABS: BASOPHILS % (AUTO) 1.2 % (0.0-2.0); EOSINOPHILS % (AUTO) 1.8 % (1.0-6.0); HEMATOCRIT 22.5 % (41-53); HEMOGLOBIN 7.8 g/dL (13.5-17.5); LYMPHOCYTES # (AUTO) 0.8 K/uL (1.0-4.8); LYMPHOCYTES % (AUTO) 13.4 % (22.0-44.0); MEAN CORPUSCULAR HEMOGLOBIN 29.6 pg (26.0-34.0); MEAN CORPUSCULAR HGB CONC 34.5 G/dL (31.0-37.0); MEAN CORPUSCULAR VOLUME 86 fL (80-100); MONOCYTES # (AUTO) 0.6 K/uL (0.1-1.0); NEUTROPHILS # (AUTO) 4.2 K/uL (1.8-7.7); NEUTROPHILS % (AUTO) 72.6 % (40.0-70.0); PLATELET COUNT (AUTO) 191 K/uL (150-450); RED BLOOD CELL COUNT(AUTO) 2.62 MIL/uL (4.50-5.90); RED CELL DISTRIBUTION WIDTH 16.4 % (11.5-14.5)
[2017-11-10 06:47] LABS: ALBUMIN 2.4 g/dL (3.4-5.0); BILIRUBIN,TOTAL 0.4 mg/dL (0.1-1.0); CALCIUM, TOTAL 6.7 mg/dL (8.8-10.5); CHOL/HDL RATIO 2.2 (4.2-7.3); CREATININE 12.53 mg/dL (0.60-1.30); MAGNESIUM 2.1 mg/dL (1.80-2.40); POTASSIUM 4.9 mmol/L (3.5-5.1); TOTAL PROTEIN, SERUM 5.9 g/dL (6.4-8.2)
[2017-11-10 06:54] LABS: GLUCOMETER DEV NAME(LOC) 5N 1P; GLUCOSE,POINT OF CARE 115 MG/DL (70-110)
[2017-11-10 07:25] LABS: HEMOGLOBIN A1C 6.9 % (4.5-6.2)
[2017-11-10] MEDS: CHOLECALCIFEROL (VIT D3) 1,000 UNITS TABLET PO SCH (08:50)
[2017-11-10] MEDS: DOCUSATE SODIUM 100 MG CAPSULE PO SCH ×2 (08:50→21:08)
[2017-11-10] MEDS: PANTOPRAZOLE SODIUM 40 MG/VIAL IVP SCH (09:29)
[2017-11-10] MEDS ORDERED: SODIUM CHLORIDE 0.9% 2,000 ML IV ONE (09:52)
[2017-11-10] MEDS: CloNIDine HCL 0.1 MG TABLET PO SCH ×2 (13:28→21:08)
[2017-11-10] MEDS: AmLODIPine BESYLATE 10 MG TABLET PO SCH (13:28)
[2017-11-10] MEDS: LABETALOL HCL 200 MG TABLET PO SCH ×2 (13:28→21:08)
[2017-11-10] MEDS: FUROSEMIDE 40 MG/4 ML VIAL IVP SCH ×2 (13:29→21:08)
[2017-11-10] MEDS: EPOETIN ALFA 10,000 UNITS/ML VIAL SQ SCH (13:29)
[2017-11-10] MEDS ORDERED: HEPARIN SODIUM,PORCINE 1,000 UNITS/ML VIAL IVP ONE (14:21)
[2017-11-10 17:39] LABS: GLUCOMETER DEV NAME(LOC) 5N 2S; GLUCOSE,POINT OF CARE 244 MG/DL (70-110)
[2017-11-10] MEDS: INSULIN LISPRO 100 UNITS/ML SQ PRN ×2 (18:05→21:10)
[2017-11-10 18:23] LABS: GLUCOMETER DEV NAME(LOC) 5N 1P; GLUCOSE,POINT OF CARE 173 MG/DL (70-110)
[2017-11-11] VITALS (7 sets, daily range): BP systolic 127–147; BP diastolic 50–76
[2017-11-11 06:10] LABS: BASOPHILS % (AUTO) 0.9 % (0.0-2.0); EOSINOPHILS % (AUTO) 1.6 % (1.0-6.0); HEMATOCRIT 23.9 % (41-53); HEMOGLOBIN 8.3 g/dL (13.5-17.5); LYMPHOCYTES # (AUTO) 0.8 K/uL (1.0-4.8); MEAN CORPUSCULAR HEMOGLOBIN 29.6 pg (26.0-34.0); MEAN CORPUSCULAR HGB CONC 34.8 G/dL (31.0-37.0); MEAN CORPUSCULAR VOLUME 85 fL (80-100); MONOCYTES # (AUTO) 0.6 K/uL (0.1-1.0); MONOCYTES % (AUTO) 9.3 % (2.0-9.0); NEUTROPHILS # (AUTO) 4.8 K/uL (1.8-7.7); NEUTROPHILS % (AUTO) 75.2 % (40.0-70.0); PLATELET COUNT (AUTO) 207 K/uL (150-450); RED BLOOD CELL COUNT(AUTO) 2.82 MIL/uL (4.50-5.90); RED CELL DISTRIBUTION WIDTH 16.3 % (11.5-14.5)
[2017-11-11 06:44] LABS: CREATININE 8.95 mg/dL (0.60-1.30); MAGNESIUM 1.8 mg/dL (1.80-2.40); PHOSPHORUS 6.5 mg/dL (2.5-4.9); POTASSIUM 4.6 mmol/L (3.5-5.1)
[2017-11-11] MEDS: CHOLECALCIFEROL (VIT D3) 1,000 UNITS TABLET PO SCH (08:15)
[2017-11-11] MEDS: AmLODIPine BESYLATE 10 MG TABLET PO SCH (08:15)
[2017-11-11] MEDS: PANTOPRAZOLE SODIUM 40 MG/VIAL IVP SCH (08:16)
[2017-11-11] MEDS: DOCUSATE SODIUM 100 MG CAPSULE PO SCH ×2 (08:16→21:56)
[2017-11-11] MEDS: CloNIDine HCL 0.1 MG TABLET PO SCH ×2 (11:37→23:24)
[2017-11-11] MEDS: LABETALOL HCL 200 MG TABLET PO SCH ×2 (11:37→21:56)
[2017-11-11] MEDS: FUROSEMIDE 40 MG/4 ML VIAL IVP SCH ×2 (11:37→21:55)
[2017-11-11] MEDS: CALCIUM ACETATE 667 MG CAPSULE PO SCH ×2 (11:37→18:08)
[2017-11-11] MEDS: INSULIN LISPRO 100 UNITS/ML SQ PRN ×3 (11:39→23:25)
[2017-11-12 00:34] LABS: GLUCOMETER DEV NAME(LOC) 5N 1P; GLUCOSE,POINT OF CARE 190 MG/DL (70-110)
[2017-11-12 00:34] LABS: GLUCOMETER DEV NAME(LOC) 5N 1P; GLUCOSE,POINT OF CARE 107 MG/DL (70-110)
[2017-11-12 00:34] LABS: GLUCOMETER DEV NAME(LOC) 5N 1P; GLUCOSE,POINT OF CARE 204 MG/DL (70-110)
[2017-11-12 04:45] VITALS: BP 130/59
[2017-11-12 05:56] LABS: BASOPHILS % (AUTO) 0.6 % (0.0-2.0); EOSINOPHILS % (AUTO) 1.5 % (1.0-6.0); HEMATOCRIT 24.9 % (41-53); HEMOGLOBIN 8.7 g/dL (13.5-17.5); LYMPHOCYTES # (AUTO) 0.8 K/uL (1.0-4.8); LYMPHOCYTES % (AUTO) 11.9 % (22.0-44.0); MEAN CORPUSCULAR HEMOGLOBIN 29.4 pg (26.0-34.0); MEAN CORPUSCULAR HGB CONC 34.8 G/dL (31.0-37.0); MEAN CORPUSCULAR VOLUME 85 fL (80-100); MONOCYTES # (AUTO) 0.6 K/uL (0.1-1.0); MONOCYTES % (AUTO) 9.1 % (2.0-9.0); NEUTROPHILS # (AUTO) 4.9 K/uL (1.8-7.7); NEUTROPHILS % (AUTO) 76.9 % (40.0-70.0); PLATELET COUNT (AUTO) 208 K/uL (150-450); RED BLOOD CELL COUNT(AUTO) 2.95 MIL/uL (4.50-5.90); RED CELL DISTRIBUTION WIDTH 15.8 % (11.5-14.5)
[2017-11-12 06:57] LABS: CALCIUM, TOTAL 6.6 mg/dL (8.8-10.5); CREATININE 10.07 mg/dL (0.60-1.30); MAGNESIUM 1.8 mg/dL (1.80-2.40); POTASSIUM 4.6 mmol/L (3.5-5.1)
[2017-11-12 07:31] VITALS: BP 140/62
[2017-11-12] MEDS: CHOLECALCIFEROL (VIT D3) 1,000 UNITS TABLET PO SCH (08:14)
[2017-11-12] MEDS: AmLODIPine BESYLATE 10 MG TABLET PO SCH (08:14)
[2017-11-12] MEDS: VITAMIN B COMP/VIT C/FOLIC ACID CAPSULE PO SCH (08:14)
[2017-11-12] MEDS: CALCIUM ACETATE 667 MG CAPSULE PO SCH ×3 (08:14→18:07)
[2017-11-12] MEDS: FUROSEMIDE 40 MG/4 ML VIAL IVP SCH (08:14)
[2017-11-12] MEDS: DOCUSATE SODIUM 100 MG CAPSULE PO SCH ×2 (08:14→21:04)
[2017-11-12] MEDS: PANTOPRAZOLE SODIUM 40 MG/VIAL IVP SCH (08:14)
[2017-11-12] MEDS: FUROSEMIDE 80 MG TABLET PO SCH ×2 (09:00→21:04)
[2017-11-12] MEDS: CloNIDine HCL 0.1 MG TABLET PO SCH ×2 (09:08→21:04)
[2017-11-12] MEDS: LABETALOL HCL 200 MG TABLET PO SCH ×2 (10:01→21:04)
[2017-11-12 11:23] VITALS: BP 132/64
[2017-11-12] MEDS: INSULIN LISPRO 100 UNITS/ML SQ PRN ×3 (12:06→21:18)
[2017-11-12] MEDS ORDERED: SODIUM CHLORIDE 0.9% 2,000 ML IV ONE ×2 (12:21→17:00)
[2017-11-12 15:16] VITALS: BP 135/67
[2017-11-12 19:07] VITALS: BP 152/76
[2017-11-12 19:56] LABS: GLUCOMETER DEV NAME(LOC) 5N 1P; GLUCOSE,POINT OF CARE 150 MG/DL (70-110)
[2017-11-12 23:38] VITALS: BP 137/60
[2017-11-13 03:58] VITALS: BP 138/65
[2017-11-13 05:25] LABS: GLUCOMETER DEV NAME(LOC) 5N 1P; GLUCOSE,POINT OF CARE 227 MG/DL (70-110)
[2017-11-13 06:07] LABS: BASOPHILS % (AUTO) 0.8 % (0.0-2.0); EOSINOPHILS % (AUTO) 1.4 % (1.0-6.0); HEMATOCRIT 24.6 % (41-53); HEMOGLOBIN 8.5 g/dL (13.5-17.5); LYMPHOCYTES # (AUTO) 0.8 K/uL (1.0-4.8); LYMPHOCYTES % (AUTO) 12.7 % (22.0-44.0); MEAN CORPUSCULAR HEMOGLOBIN 29.6 pg (26.0-34.0); MEAN CORPUSCULAR HGB CONC 34.6 G/dL (31.0-37.0); MEAN CORPUSCULAR VOLUME 85 fL (80-100); MONOCYTES # (AUTO) 0.7 K/uL (0.1-1.0); NEUTROPHILS # (AUTO) 4.9 K/uL (1.8-7.7); NEUTROPHILS % (AUTO) 74.1 % (40.0-70.0); PLATELET COUNT (AUTO) 208 K/uL (150-450); RED BLOOD CELL COUNT(AUTO) 2.88 MIL/uL (4.50-5.90); RED CELL DISTRIBUTION WIDTH 16.2 % (11.5-14.5)
[2017-11-13] MEDS: INSULIN LISPRO 100 UNITS/ML SQ PRN ×4 (06:15→20:50)
[2017-11-13 06:24] LABS: CALCIUM, TOTAL 6.8 mg/dL (8.8-10.5); CREATININE 6.87 mg/dL (0.60-1.30); MAGNESIUM 1.7 mg/dL (1.80-2.40); PHOSPHORUS 5.1 mg/dL (2.5-4.9); POTASSIUM 4.6 mmol/L (3.5-5.1)
[2017-11-13 07:07] VITALS: BP 148/70
[2017-11-13 08:37] LABS: GLUCOMETER DEV NAME(LOC) 5N 2S; GLUCOSE,POINT OF CARE 192 MG/DL (70-110)
[2017-11-13 08:37] LABS: GLUCOMETER DEV NAME(LOC) 5N 2S; GLUCOSE,POINT OF CARE 122 MG/DL (70-110)
[2017-11-13 08:37] LABS: GLUCOMETER DEV NAME(LOC) 5N 2S; GLUCOSE,POINT OF CARE 229 MG/DL (70-110)
[2017-11-13 08:37] LABS: GLUCOMETER DEV NAME(LOC) 5N 2S; GLUCOSE,POINT OF CARE 202 MG/DL (70-110)
[2017-11-13 08:37] LABS: GLUCOMETER DEV NAME(LOC) 5N 2S; GLUCOSE,POINT OF CARE 252 MG/DL (70-110)
[2017-11-13] MEDS: VITAMIN B COMP/VIT C/FOLIC ACID CAPSULE PO SCH (08:45)
[2017-11-13] MEDS: PANTOPRAZOLE SODIUM 40 MG/VIAL IVP SCH (08:45)
[2017-11-13] MEDS: DOCUSATE SODIUM 100 MG CAPSULE PO SCH ×2 (08:45→20:30)
[2017-11-13] MEDS: AmLODIPine BESYLATE 10 MG TABLET PO SCH (08:45)
[2017-11-13] MEDS: CALCIUM ACETATE 667 MG CAPSULE PO SCH ×3 (08:45→18:30)
[2017-11-13] MEDS: CHOLECALCIFEROL (VIT D3) 1,000 UNITS TABLET PO SCH (08:45)
[2017-11-13] MEDS: CloNIDine HCL 0.1 MG TABLET PO SCH ×2 (08:45→20:30)
[2017-11-13] MEDS: EPOETIN ALFA 10,000 UNITS/ML VIAL SQ SCH (08:46)
[2017-11-13] MEDS: FUROSEMIDE 80 MG TABLET PO SCH ×2 (09:55→20:30)
[2017-11-13] MEDS: LABETALOL HCL 200 MG TABLET PO SCH ×2 (09:55→20:30)
[2017-11-13 11:31] VITALS: BP 140/71
[2017-11-13 15:29] VITALS: BP 128/61
[2017-11-13 18:28] LABS: GLUCOMETER DEV NAME(LOC) 5N 1P; GLUCOSE,POINT OF CARE 168 MG/DL (70-110)
[2017-11-13 19:57] VITALS: BP 146/69
[2017-11-14 00:16] VITALS: BP 133/67
[2017-11-14 01:13] LABS: GLUCOMETER DEV NAME(LOC) 5N 2S; GLUCOSE,POINT OF CARE 205 MG/DL (70-110)
[2017-11-14 01:13] LABS: GLUCOMETER DEV NAME(LOC) 5N 2S; GLUCOSE,POINT OF CARE 156 MG/DL (70-110)
[2017-11-14 01:13] LABS: GLUCOMETER DEV NAME(LOC) 5N 2S; GLUCOSE,POINT OF CARE 204 MG/DL (70-110)
[2017-11-14 04:24] VITALS: BP 152/63
[2017-11-14] MEDS: INSULIN LISPRO 100 UNITS/ML SQ PRN ×3 (05:53→17:43)
[2017-11-14 06:12] LABS: BASOPHILS % (AUTO) 0.9 % (0.0-2.0); EOSINOPHILS % (AUTO) 1.7 % (1.0-6.0); HEMATOCRIT 24.6 % (41-53); HEMOGLOBIN 8.5 g/dL (13.5-17.5); LYMPHOCYTES # (AUTO) 0.9 K/uL (1.0-4.8); LYMPHOCYTES % (AUTO) 14.4 % (22.0-44.0); MEAN CORPUSCULAR HEMOGLOBIN 29.5 pg (26.0-34.0); MEAN CORPUSCULAR HGB CONC 34.4 G/dL (31.0-37.0); MEAN CORPUSCULAR VOLUME 86 fL (80-100); MONOCYTES # (AUTO) 0.8 K/uL (0.1-1.0); MONOCYTES % (AUTO) 12.5 % (2.0-9.0); NEUTROPHILS # (AUTO) 4.6 K/uL (1.8-7.7); NEUTROPHILS % (AUTO) 70.5 % (40.0-70.0); PLATELET COUNT (AUTO) 216 K/uL (150-450); RED BLOOD CELL COUNT(AUTO) 2.87 MIL/uL (4.50-5.90)
[2017-11-14 06:32] LABS: CALCIUM, TOTAL 6.8 mg/dL (8.8-10.5); CREATININE 8.09 mg/dL (0.60-1.30); MAGNESIUM 1.8 mg/dL (1.80-2.40); PHOSPHORUS 5.3 mg/dL (2.5-4.9); POTASSIUM 4.4 mmol/L (3.5-5.1)
[2017-11-14 07:42] VITALS: BP 177/77
[2017-11-14] MEDS: CHOLECALCIFEROL (VIT D3) 1,000 UNITS TABLET PO SCH (09:21)
[2017-11-14] MEDS: PANTOPRAZOLE SODIUM 40 MG/VIAL IVP SCH (09:21)
[2017-11-14] MEDS: LABETALOL HCL 200 MG TABLET PO SCH (09:21)
[2017-11-14] MEDS: DOCUSATE SODIUM 100 MG CAPSULE PO SCH (09:21)
[2017-11-14] MEDS: VITAMIN B COMP/VIT C/FOLIC ACID CAPSULE PO SCH (09:21)
[2017-11-14] MEDS: CALCIUM ACETATE 667 MG CAPSULE PO SCH ×2 (09:21→12:20)
[2017-11-14] MEDS: FUROSEMIDE 80 MG TABLET PO SCH (09:21)
[2017-11-14] MEDS: CloNIDine HCL 0.1 MG TABLET PO SCH (10:30)
[2017-11-14] MEDS: AmLODIPine BESYLATE 10 MG TABLET PO SCH (10:30)
[2017-11-14 11:32] VITALS: BP 171/69
[2017-11-14 11:41] LABS: GLUCOMETER DEV NAME(LOC) 5N 2S; GLUCOSE,POINT OF CARE 187 MG/DL (70-110)
[2017-11-14 15:11] VITALS: BP 133/61
[2017-11-14] MEDS ORDERED: PHOSLOC PO (16:25)
[2017-11-14] MEDS ORDERED: VITAD1000 PO (16:25)
[2017-11-14] MEDS ORDERED: DSS100 PO (16:31)
[2017-11-14] MEDS ORDERED: EPOE10003 SQ (16:31)
[2017-11-14] MEDS ORDERED: FOLI1CAP2 PO (16:31)
[2017-11-14 17:39] LABS: GLUCOMETER DEV NAME(LOC) 5N 1P; GLUCOSE,POINT OF CARE 234 MG/DL (70-110)
[2017-11-14] MEDS ORDERED: HEPARIN SODIUM,PORCINE 1,000 UNITS/ML VIAL IVP ONE (17:59)
[2017-11-14 19:08] LABS: GLUCOMETER DEV NAME(LOC) 5N 2S; GLUCOSE,POINT OF CARE 218 MG/DL (70-110)
== END 2017-11-14 18:00 | disposition home or self-care (01) | DRG 291 ==
LOC: EMS 15:00 → 5N 18:30
PROVIDERS: ADMIT Internal Medicine; ATTEND Internal Medicine
PROC: 5A1D70Z Performance of Urinary Filtration, Intermittent, Less than 6 Hours Per Day (ICD-10-PCS; principal; 2017-11-09)
PROC: 30233N1 Transfusion of Nonautologous Red Blood Cells into Peripheral Vein, Percutaneous Approach (ICD-10-PCS; 2017-11-09)
PROC: 5A1D70Z Performance of Urinary Filtration, Intermittent, Less than 6 Hours Per Day (ICD-10-PCS; 2017-11-10)
PROC: 5A1D70Z Performance of Urinary Filtration, Intermittent, Less than 6 Hours Per Day (ICD-10-PCS; 2017-11-12)
PROC: 5A1D70Z Performance of Urinary Filtration, Intermittent, Less than 6 Hours Per Day (ICD-10-PCS; 2017-11-14)
DX: I13.2 Hypertensive heart and chronic kidney disease with heart failure and with stage 5 chronic kidney disease, or end stage renal disease (principal); E43 Unspecified severe protein-calorie malnutrition; N18.6 End stage renal disease; N17.9 Acute kidney failure, unspecified; E11.22 Type 2 diabetes mellitus with diabetic chronic kidney disease; E55.9 Vitamin D deficiency, unspecified; E87.5 Hyperkalemia; I50.9 Heart failure, unspecified; E83.39 Other disorders of phosphorus metabolism; D63.1 Anemia in chronic kidney disease; E11.319 Type 2 diabetes mellitus with unspecified diabetic retinopathy without macular edema; E78.5 Hyperlipidemia, unspecified; D63.8 Anemia in other chronic diseases classified elsewhere; Z68.30 Body mass index [BMI] 30.0-30.9, adult; Z91.19 Patient's noncompliance with other medical treatment and regimen; Z79.84 Long term (current) use of oral hypoglycemic drugs; Z91.15 Patient's noncompliance with renal dialysis
CPT/HCPCS: 36245; 36561; 76000; 76937; 82306; 83036; 83540; 83550; 83735; 83970; 84100; 85045; 86706; 86850; 86900; 86901; 86920; 87086; 87340; 93005; 93970; 96374; 96375; 96376; 97162; 97165; 99291; C9113; J0610; J0885; J1644; J1815; J1940; J2250; J3010; J3490; J7030; J7040; J7050; P9016

== ENCOUNTER 2018-07-26 15:27 | Inpatient (IN) | payer MEDICARE ==
[~2018-07-26] VITALS: Ht 170.2 cm; Wt 78.2 kg
[~2018-07-26 15:27] MED LIST changes: +DSS100 PO; +EPOE10003 SQ; +FOLI1CAP2 PO; -FURO40 PO; -LABE200T PO; +LABE200T6 PO; +METF-960 PO; +PHOSLOC PO; +VITAD1000 PO
[2018-07-26] MEDS ORDERED: 0.9% SODIUM CHLORIDE 10 ML SYRINGE IVP PRN ×2 (15:45→18:30)
[2018-07-26] MEDS ORDERED: DEXTROSE 50%-WATER 25 GM/50 ML SYRINGE IVP ONE (16:00)
[2018-07-26] MEDS ORDERED: SODIUM CHLORIDE 154 MEQ in DEXTROSE 10%-WATER 1,000 ML IV ONE (16:00)
[2018-07-26 16:07] LABS: BASOPHILS % (AUTO) 0.2 % (0.0-2.0); EOSINOPHILS % (AUTO) 0.1 % (1.0-6.0); HEMATOCRIT 29.6 % (41-53); HEMOGLOBIN 10.2 g/dL (13.5-17.5); LYMPHOCYTES # (AUTO) 0.4 K/uL (1.0-4.8); LYMPHOCYTES % (AUTO) 5.2 % (22.0-44.0); MEAN CORPUSCULAR HEMOGLOBIN 31.7 pg (26.0-34.0); MEAN CORPUSCULAR HGB CONC 34.3 G/dL (31.0-37.0); MEAN CORPUSCULAR VOLUME 92 fL (80-100); MONOCYTES # (AUTO) 0.6 K/uL (0.1-1.0); MONOCYTES % (AUTO) 8.9 % (2.0-9.0); NEUTROPHILS # (AUTO) 5.9 K/uL (1.8-7.7); PLATELET COUNT (AUTO) 222 K/uL (150-450); RED BLOOD CELL COUNT(AUTO) 3.21 MIL/uL (4.50-5.90); RED CELL DISTRIBUTION WIDTH 14.5 % (11.5-14.5)
[2018-07-26 16:12] LABS: NEUTROPHILS % (AUTO) 85.6 % (40.0-70.0)
[2018-07-26 16:21] LABS: APPEARANCE,URINE CLEAR (CLEAR); BILIRUBIN,URINE NEGATIVE (NEGATIVE); GLUCOSE, URINE (UA) NEGATIVE (NEGATIVE); KETONES,URINE NEGATIVE (NEGATIVE); LEUKOCYTE ESTERASE ,URINE NEGATIVE (NEGATIVE); NITRATE,URINE NEGATIVE (NEGATIVE); OCCULT BLOOD,URINE SMALL (NEGATIVE); PH,URINE 7.5 (5.0-8.0); PROTEIN,URINE SEE CONFIRM (NEGATIVE); UROBILINOGEN,URINE 0.2 mg/dL (<=1.0)
[2018-07-26 16:21] LABS: INR 1.1 (0.9-1.1); PROTHROMBIN TIME 11.9 SEC (9.4-11.6)
[2018-07-26 16:23] LABS: CALCIUM, TOTAL 8.6 mg/dL (8.8-10.5); CREATININE 7.86 mg/dL (0.60-1.30); POTASSIUM 5.5 mmol/L (3.5-5.1)
[2018-07-26 16:28] LABS: ALBUMIN 3.2 g/dL (3.4-5.0); BILIRUBIN,TOTAL 0.6 mg/dL (0.1-1.0); TOTAL PROTEIN, SERUM 6.9 g/dL (6.4-8.2)
[2018-07-26 16:29] LABS: GLUCOSE,POINT OF CARE 151 MG/DL (70-110)
[2018-07-26 16:33] LABS: SULFOSALICYLIC ACID,URINE 4+ (Negative)
[2018-07-26 16:36] LABS: BACTERIA,URINE None Seen /HPF (None Seen); SQUAMOUS EPITHELIAL CELL,UR Rare /LPF (None Seen)
[2018-07-26 17:06] LABS: ABG A-A DIFF O2 116.6 mmHg (10-20.0); ABG BASE EXCESS 2.1 mmol/L (-2.0-3.0); ABG CARBOXYHEMOGLOBIN 0.7 % (0.0-1.5); ABG HCO3 25.8 mmol/L (22.0-26.0); ABG METHEMOGLOBIN 0.3 % (0.0-1.5); ABG OXYGEN CONTENT 13.8 mL/dL (15.0-23.0); ABG OXYGEN SATURATION 93.2 % (95.0-98.0); ABG OXYHEMOGLOBIN 92.3 % (94.0-100.0); ABG PCO2 43 mmHg (35-45); ABG PH 7.413 (7.35-7.450); ABG TOTAL HEMOGLOBIN 10.6 G/dL (12.0-18.0); O2 DEVICE,BLOOD GAS CANNULA (ROOM AIR); PO2, ARTERIAL BG 64.2 mmHg (79.0-87.0); SITE, BLOOD GAS RT RADIAL; SOURCE, BLOOD GAS ARTERIAL; TEMPERATURE, FAHRENHEIT, BG 92.8 FAHREN (96.0-98.6)
[2018-07-26 17:29] LABS: GLUCOSE,POINT OF CARE 125 MG/DL (70-110)
[2018-07-26] MEDS ORDERED: CefTRIAXone 1 GM/DEXTROSE 50 ML IV ONE (17:30)
[2018-07-26] MEDS ORDERED: AZITHROMYCIN 500 MG/NS 250 ML IV ONE (17:30)
[2018-07-26] MEDS ORDERED: NITROGLYCERIN 2% (1 GM=INCH) PACKET TP ONE (17:30)
[2018-07-26 17:33] LABS: LACTIC ACID 0.8 mmol/L (0.4-2.0)
[2018-07-26 18:14] LABS: GLUCOSE,POINT OF CARE 115 MG/DL (70-110)
[2018-07-26] MEDS ORDERED: FUROSEMIDE 40 MG/4 ML VIAL IVP ONE (18:15)
[2018-07-26] MEDS ORDERED: ACETAMINOPHEN 325 MG TABLET PO PRN (18:30)
[2018-07-26] MEDS ORDERED: ONDANSETRON HCL 4 MG/2 ML VIAL IVP PRN (18:30)
[2018-07-26] MEDS ORDERED: ALBUTEROL SULFATE 2.5 MG/0.5 ML NEB SOLUTION NEB SCH (19:00)
[2018-07-26] MEDS ORDERED: IPRATROPIUM BROMIDE 0.5 MG/2.5 ML NEB SOLUTION NEB SCH (19:00)
[2018-07-26 20:00] VITALS: BP 173/76
[2018-07-27] VITALS: BP 180/79
[2018-07-27] LABS: GLUCOSE,POINT OF CARE 60 MG/DL (70-110)
[2018-07-27] MEDS ORDERED: SODIUM CHLORIDE 0.9% 2,000 ML IV ONE (00:10)
[2018-07-27] MEDS ORDERED: CloNIDine HCL 0.1 MG TABLET PO PRN ×2 (00:15→06:15)
[2018-07-27] MEDS: CloNIDine HCL 0.2 MG TABLET PO PRN ×2 (01:07→07:06)
[2018-07-27 04:00] VITALS: BP 203/88
[2018-07-27 05:08] LABS: BASOPHILS % (AUTO) 0.3 % (0.0-2.0); EOSINOPHILS % (AUTO) 0.8 % (1.0-6.0); HEMATOCRIT 25.9 % (41-53); HEMOGLOBIN 8.9 g/dL (13.5-17.5); LYMPHOCYTES # (AUTO) 0.5 K/uL (1.0-4.8); LYMPHOCYTES % (AUTO) 7.7 % (22.0-44.0); MEAN CORPUSCULAR HEMOGLOBIN 32.4 pg (26.0-34.0); MEAN CORPUSCULAR HGB CONC 34.5 G/dL (31.0-37.0); MEAN CORPUSCULAR VOLUME 94 fL (80-100); MONOCYTES # (AUTO) 0.8 K/uL (0.1-1.0); MONOCYTES % (AUTO) 12.6 % (2.0-9.0); NEUTROPHILS # (AUTO) 4.7 K/uL (1.8-7.7); NEUTROPHILS % (AUTO) 78.6 % (40.0-70.0); PLATELET COUNT (AUTO) 208 K/uL (150-450); RED BLOOD CELL COUNT(AUTO) 2.76 MIL/uL (4.50-5.90); RED CELL DISTRIBUTION WIDTH 14.8 % (11.5-14.5)
[2018-07-27] MEDS: AmLODIPine BESYLATE 10 MG TABLET PO SCH ×2 (05:12→07:39)
[2018-07-27] MEDS: LOSARTAN POTASSIUM 50 MG TABLET PO SCH ×3 (05:12→22:50)
[2018-07-27 05:32] LABS: ALBUMIN 2.8 g/dL (3.4-5.0); BILIRUBIN,TOTAL 0.5 mg/dL (0.1-1.0); CALCIUM, TOTAL 8.3 mg/dL (8.8-10.5); CREATININE 5.44 mg/dL (0.60-1.30); PHOSPHORUS 4.5 mg/dL (2.5-4.9); POTASSIUM 4.9 mmol/L (3.5-5.1); THYROID STIMULATING HORMONE 1.04 uIU/mL (0.36-3.74); TOTAL PROTEIN, SERUM 6.4 g/dL (6.4-8.2)
[2018-07-27] MEDS ORDERED: DEXTROSE 50%-WATER 25 GM/50 ML SYRINGE IVP ONE ×2 (06:53→07:15)
[2018-07-27 06:58] LABS: GLUCOSE,POINT OF CARE 26 MG/DL (70-110)
[2018-07-27 08:00] VITALS: BP 113/60
[2018-07-27 08:28] LABS: MAGNESIUM 2.2 mg/dL (1.80-2.40)
[2018-07-27] MEDS ORDERED: AmLODIPine BESYLATE 2.5 MG TABLET PO SCH (09:00)
[2018-07-27] MEDS ORDERED: AmLODIPine BESYLATE 5 MG TABLET PO SCH (09:00)
[2018-07-27 09:18] LABS: GLUCOSE,POINT OF CARE 79 MG/DL (70-110)
[2018-07-27 12:00] VITALS: BP 118/61
[2018-07-27 12:29] LABS: GLUCOSE,POINT OF CARE 123 MG/DL (70-110)
[2018-07-27] MEDS ORDERED: ACETAMINOPHEN 325 MG TABLET PO PRN (14:00)
[2018-07-27] MEDS ORDERED: MORPHINE SULFATE 2 MG/ML SYRINGE IVP PRN (14:00)
[2018-07-27] MEDS ORDERED: HydrALAZINE HCL 20 MG/ML VIAL IVP PRN (14:00)
[2018-07-27] MEDS ORDERED: ALBUTEROL SULFATE 2.5 MG/0.5 ML NEB SOLUTION NEB PRN (14:00)
[2018-07-27] MEDS ORDERED: ZOLPIDEM TARTRATE 5 MG TABLET PO PRN (14:00)
[2018-07-27] MEDS ORDERED: HYDROCODONE/ACETAMINOPHEN 5-325 MG TABLET PO PRN (14:00)
[2018-07-27] MEDS ORDERED: BISACODYL 10 MG RECTAL RECTAL SUPPOSITORY PR PRN (14:00)
[2018-07-27] MEDS ORDERED: ONDANSETRON HCL 4 MG/2 ML VIAL IVP PRN (14:00)
[2018-07-27] MEDS ORDERED: MAGNESIUM HYDROXIDE SUSPENSION 30 ML UDCUP PO PRN (14:00)
[2018-07-27] MEDS ORDERED: IPRATROPIUM BROMIDE 0.5 MG/2.5 ML NEB SOLUTION NEB PRN (14:00)
[2018-07-27 15:03] LABS: GLUCOSE,POINT OF CARE 146 MG/DL (70-110)
[2018-07-27] MEDS ORDERED: PARICALCITOL 5 MCG/1 ML VIAL IVP SCH (16:30)
[2018-07-27] MEDS ORDERED: EPOETIN ALFA 10,000 UNITS/ML VIAL SQ SCH ×2 (17:00)
[2018-07-27] MEDS: HEPARIN SODIUM,PORCINE 5,000 UNITS/ML VIAL SQ SCH (17:19)
[2018-07-27] MEDS: CALCIUM ACETATE 667 MG CAPSULE PO SCH (17:30)
[2018-07-27 18:20] VITALS: BP 166/71
[2018-07-27 18:38] LABS: GLUCOSE,POINT OF CARE 133 MG/DL (70-110)
[2018-07-27] MEDS ORDERED: DOCUSATE SODIUM 100 MG CAPSULE PO SCH (21:00)
[2018-07-27] MEDS: DOCUSATE SODIUM 100 MG CAPSULE PO SCH (22:51)
[2018-07-27] MEDS: CloNIDine HCL 0.1 MG TABLET PO SCH (22:51)
[2018-07-27] MEDS: LABETALOL HCL 200 MG TABLET PO SCH (23:23)
[2018-07-27 23:49] VITALS: BP 158/68
[2018-07-28] MEDS: HEPARIN SODIUM,PORCINE 5,000 UNITS/ML VIAL SQ SCH ×2 (00:02→08:57)
[2018-07-28 04:12] VITALS: BP 154/58
[2018-07-28 07:56] VITALS: BP 160/61
[2018-07-28] MEDS: DOCUSATE SODIUM 100 MG CAPSULE PO SCH (08:57)
[2018-07-28] MEDS: LOSARTAN POTASSIUM 50 MG TABLET PO SCH (08:57)
[2018-07-28] MEDS: CALCIUM ACETATE 667 MG CAPSULE PO SCH (08:58)
[2018-07-28] MEDS: LABETALOL HCL 200 MG TABLET PO SCH (08:58)
[2018-07-28] MEDS: CloNIDine HCL 0.1 MG TABLET PO SCH (08:59)
[2018-07-28] MEDS ORDERED: CHOLECALCIFEROL (VIT D3) 1,000 UNITS TABLET PO SCH (09:00)
[2018-07-28] MEDS ORDERED: PANTOPRAZOLE SODIUM 40 MG/VIAL IVP SCH (09:00)
[2018-07-28] MEDS ORDERED: VITAMIN B COMP/VIT C/FOLIC ACID CAPSULE PO SCH (09:00)
[2018-07-28] MEDS: AmLODIPine BESYLATE 10 MG TABLET PO SCH (10:05)
[2018-07-28 11:59] LABS: GLUCOMETER DEV NAME(LOC) 5S.2; GLUCOSE,POINT OF CARE 172 MG/DL (70-110)
[2018-07-28 11:59] LABS: GLUCOMETER DEV NAME(LOC) 5S.2; GLUCOSE,POINT OF CARE 125 MG/DL (70-110)
[2018-07-30] MEDS ORDERED: EPOETIN ALFA 10,000 UNITS/ML VIAL SQ SCH (09:00)
== END 2018-07-28 12:10 | disposition left against medical advice (07) | DRG 70 ==
LOC: EMS 15:28 → ICU 18:16 → 5N 07-27 18:00
PROVIDERS: ADMIT Hospitalist; ATTEND Hospitalist
PROC: 5A1D70Z Performance of Urinary Filtration, Intermittent, Less than 6 Hours Per Day (ICD-10-PCS; principal; 2018-07-27)
DX: G93.41 Metabolic encephalopathy (principal); N18.6 End stage renal disease; E43 Unspecified severe protein-calorie malnutrition; I13.2 Hypertensive heart and chronic kidney disease with heart failure and with stage 5 chronic kidney disease, or end stage renal disease; N25.81 Secondary hyperparathyroidism of renal origin; E87.1 Hypo-osmolality and hyponatremia; E87.2 Acidosis; E11.649 Type 2 diabetes mellitus with hypoglycemia without coma; E11.22 Type 2 diabetes mellitus with diabetic chronic kidney disease; I50.9 Heart failure, unspecified; D63.1 Anemia in chronic kidney disease; E78.5 Hyperlipidemia, unspecified; E83.39 Other disorders of phosphorus metabolism; E83.51 Hypocalcemia; E87.5 Hyperkalemia; S40.812A Abrasion of left upper arm, initial encounter; Z91.19 Patient's noncompliance with other medical treatment and regimen; W45.8XXA Other foreign body or object entering through skin, initial encounter; Z99.2 Dependence on renal dialysis; Z91.15 Patient's noncompliance with renal dialysis; Z91.14 Patient's other noncompliance with medication regimen; Z79.899 Other long term (current) drug therapy; Y93.89 Activity, other specified; Y92.89 Other specified places as the place of occurrence of the external cause; Y99.8 Other external cause status
CPT/HCPCS: 36600; 51702; 70450; 72125; 74176; 82805; 83605; 83735; 84145; 84443; 87040; 87081; 93005; 96361; 96365; 99291; C9113; G0378; J0456; J0696; J0885; J1644; J1940; J2501; J7030; J7131